=== PATIENT | male | born 1960 | race Caucasian/White ===

== ENCOUNTER 2016-06-26 19:35 | Outpatient (CLI) | payer OTHER | END 2016-06-26 19:36 | disposition home or self-care (01) | DX: G47.33 Obstructive sleep apnea (adult) (pediatric) (principal); G47.61 Periodic limb movement disorder ==

== ENCOUNTER 2016-07-07 07:30 | Outpatient (CLI) | payer OTHER | END 2016-07-07 07:31 | disposition home or self-care (01) | DX: E11.9 Type 2 diabetes mellitus without complications (principal); I10 Essential (primary) hypertension ==

== ENCOUNTER 2016-07-25 14:59 | Outpatient (CLI) | payer OTHER | END 2016-07-25 15:00 | disposition home or self-care (01) | DX: G47.33 Obstructive sleep apnea (adult) (pediatric) (principal) ==

== ENCOUNTER 2016-08-07 19:36 | Outpatient (CLI) | payer OTHER | END 2016-08-07 19:37 | disposition home or self-care (01) | DX: G47.33 Obstructive sleep apnea (adult) (pediatric) (principal) ==

== ENCOUNTER 2016-08-22 15:22 | Outpatient (CLI) | payer OTHER | END 2016-08-22 15:23 | disposition home or self-care (01) | DX: G47.33 Obstructive sleep apnea (adult) (pediatric) (principal) ==

== ENCOUNTER 2016-10-17 15:53 | Outpatient (CLI) | payer OTHER | END 2016-10-17 15:54 | disposition home or self-care (01) | DX: G47.33 Obstructive sleep apnea (adult) (pediatric) (principal) ==

== ENCOUNTER 2016-11-15 07:39 | Outpatient (CLI) | payer OTHER ==
[2016-11-15 12:45] LABS: MEAN PLATELET VOLUME 9.1 fL (7.4-11.4); NEUTROPHILS # (AUTO) 2.4 10^3/uL (1.5-6.6); UNCORRECTED WHITE BLOOD COUNT 5.1 x10^3/uL; WHITE BLOOD COUNT 5.1 x10^3/uL (4.8-10.8)
[2016-11-15 12:48] LABS: BASOPHILS # (AUTO) 0.1 10^3/uL (0.0-0.1); BASOPHILS % (AUTO) 1.2 %; EOSINOPHILS # (AUTO) 0.1 10^3/uL (0.0-0.7); EOSINOPHILS % (AUTO) 2.6 %; HCT - HEMATOCRIT 41.7 % (42.0-52.0); HGB - HEMOGLOBIN 14.2 g/dL (14.0-18.0); LYMPHOCYTES % (AUTO) 39.5 %; MEAN CORPUSCULAR HEMOGLOBIN 30.8 pg (27.0-31.0); MEAN CORPUSCULAR HGB CONC 34.2 g/dL (32.0-36.0); MEAN CORPUSCULAR VOLUME 90.1 fL (80.0-94.0); MONOCYTES # (AUTO) 0.5 10^3/uL (0.0-1.0); MONOCYTES % (AUTO) 9.1 %; NEUTROPHILS % (AUTO) 47.6 %; NUCLEATED RED BLOOD CELLS AUTO 0.1 /100WBC; RED BLOOD COUNT 4.63 10^6/uL (4.70-6.10); RED CELL DISTRIBUTION WIDTH 13.3 % (12.0-15.0)
[2016-11-15 13:08] LABS: HEMOGLOBIN A1C 0.69 g/dL
[2016-11-15 13:28] LABS: ALBUMIN/GLOBULIN RATIO 1.4 (1.0-2.2); BUN - BLOOD UREA NITROGEN 18 mg/dL (6-20); CALCIUM 9.1 mg/dL (8.5-10.3); CARBON DIOXIDE - CO2 29 mmol/L (21-32); CHLORIDE 101 mmol/L (101-111); CHOL/HDL RATIO 3.8 (<5.0); CHOLESTEROL 182 mg/dL; CREATININE 0.8 mg/dL (0.6-1.2); GFR - MDRD 101 (>89); GLUCOSE 119 mg/dL (70-100); HDL CHOLESTEROL 48 mg/dL; LDL/HDL RATIO 2.5 (<3.6); POTASSIUM 3.8 mmol/L (3.5-5.0); SODIUM 136 mmol/L (135-145); TOTAL PROTEIN 7.1 g/dL (6.7-8.2); TRIGLYCERIDES 74 mg/dL; VLDL CHOLESTEROL 15 mg/dL
== END 2016-11-15 07:40 | disposition home or self-care (01) ==
LOC: LAB.WCP 07:39
PROVIDERS: ATTEND Family Medicine
DX: I10 Essential (primary) hypertension (principal); E11.9 Type 2 diabetes mellitus without complications; E78.5 Hyperlipidemia, unspecified
CPT/HCPCS: 36415; 80053; 80061; 83036; 85025

== ENCOUNTER 2016-11-21 13:34 | Outpatient (CLI) | payer OTHER | END 2016-11-21 13:35 | disposition home or self-care (01) | LOC: SC 13:34 | PROVIDERS: ATTEND Nurse Practitioner Family | DX: G47.33 Obstructive sleep apnea (adult) (pediatric) (principal) | CPT/HCPCS: 99212; 99214 ==

== ENCOUNTER 2017-08-28 15:45 | Outpatient (CLI) | payer BC | END 2017-08-28 15:46 | disposition home or self-care (01) | LOC: SC 15:45 | PROVIDERS: ATTEND Nurse Practitioner Family | DX: G47.33 Obstructive sleep apnea (adult) (pediatric) (principal) | CPT/HCPCS: 99212; 99213 ==

== ENCOUNTER 2017-11-06 08:00 | Outpatient (CLI) | payer BC ==
[2017-11-06 13:19] LABS: ALBUMIN 4.2 g/dL (3.2-5.5); ALBUMIN/GLOBULIN RATIO 1.4 (1.0-2.2); ALKALINE PHOSPHATASE 42 IU/L (42-121); ALT ALANINE AMINOTRANSFERASE 29 IU/L (10-60); AST ASPARTATE AMINOTRANSFERASE 26 IU/L (10-42); BILIRUBIN,TOTAL 0.9 mg/dL (0.2-1.0); BUN - BLOOD UREA NITROGEN 13 mg/dL (6-20); CARBON DIOXIDE - CO2 29 mmol/L (21-32); CHLORIDE 99 mmol/L (101-111); CHOL/HDL RATIO 4.4 (<5.0); CHOLESTEROL 198 mg/dL; CREATININE 0.7 mg/dL (0.6-1.2); GFR - MDRD 117 (>89); GLUCOSE 141 mg/dL (70-100); HDL CHOLESTEROL 45 mg/dL; LDL CHOLESTEROL,CALCULATED 134 mg/dL; SODIUM 135 mmol/L (135-145); TOTAL PROTEIN 7.1 g/dL (6.7-8.2); VLDL CHOLESTEROL 19 mg/dL
[2017-11-06 19:46] LABS: HB2 TOTAL 16.7 g/dL; HEMOGLOBIN A1C 0.8 g/dL; HEMOGLOBIN A1C % 6.5 % (4.6-6.2)
== END 2017-11-06 08:01 | disposition home or self-care (01) ==
LOC: LAB.WCP 08:00
PROVIDERS: ATTEND Family Medicine
DX: N52.9 Male erectile dysfunction, unspecified (principal); I10 Essential (primary) hypertension; E11.9 Type 2 diabetes mellitus without complications; Z12.5 Encounter for screening for malignant neoplasm of prostate
CPT/HCPCS: 36415; 80053; 80061; 82043; 83036; 83721; 84153

== ENCOUNTER 2018-06-26 07:05 | Outpatient (CLI) | payer BC ==
[2018-06-26 12:57] LABS: ALBUMIN 4.4 g/dL (3.2-5.5); ALBUMIN/GLOBULIN RATIO 1.5 (1.0-2.2); ALKALINE PHOSPHATASE 44 IU/L (42-121); ALT ALANINE AMINOTRANSFERASE 35 IU/L (10-60); AST ASPARTATE AMINOTRANSFERASE 30 IU/L (10-42); BUN - BLOOD UREA NITROGEN 12 mg/dL (6-20); CALCIUM 9.5 mg/dL (8.5-10.3); CARBON DIOXIDE - CO2 28 mmol/L (21-32); CHLORIDE 98 mmol/L (101-111); CHOL/HDL RATIO 2.3 (<5.0); CHOLESTEROL 124 mg/dL; CREATININE 0.7 mg/dL (0.6-1.2); GFR - MDRD 117 (>89); GLUCOSE 130 mg/dL (70-100); HDL CHOLESTEROL 54 mg/dL; LDL CHOLESTEROL,CALCULATED 60 mg/dL; LDL/HDL RATIO 1.1 (<3.6); SODIUM 133 mmol/L (135-145); TOTAL PROTEIN 7.4 g/dL (6.7-8.2); VLDL CHOLESTEROL 10 mg/dL
[2018-06-27 19:22] LABS: HB2 TOTAL 15.8 g/dL; HEMOGLOBIN A1C 0.82 g/dL; HEMOGLOBIN A1C % 6.9 % (4.6-6.2)
== END 2018-06-26 23:59 | disposition home or self-care (01) ==
LOC: LAB.WCP 07:05
PROVIDERS: ATTEND Family Medicine
DX: E11.9 Type 2 diabetes mellitus without complications (principal); E78.5 Hyperlipidemia, unspecified; I10 Essential (primary) hypertension
CPT/HCPCS: 36415; 80053; 80061; 83036; 83721

== ENCOUNTER 2018-10-21 15:17 | Outpatient (CLI) | payer BC | END 2018-10-21 15:18 | disposition home or self-care (01) | LOC: SC 15:17 | PROVIDERS: ATTEND Nurse Practitioner Family | DX: G47.33 Obstructive sleep apnea (adult) (pediatric) (principal) | CPT/HCPCS: 99212; 99214 ==

== ENCOUNTER 2019-01-22 08:00 | Outpatient (CLI) | payer BC ==
[2019-01-22 12:27] LABS: ALBUMIN 4.3 g/dL (3.2-5.5); ALBUMIN/GLOBULIN RATIO 1.5 (1.0-2.2); BILIRUBIN,TOTAL 0.7 mg/dL (0.2-1.0); CALCIUM 8.9 mg/dL (8.5-10.3); CREATININE 0.8 mg/dL (0.6-1.2); TOTAL PROTEIN 7.1 g/dL (6.7-8.2)
[2019-01-22 12:41] LABS: HB2 TOTAL 14.1 g/dL; HEMOGLOBIN A1C 0.79 g/dL; HEMOGLOBIN A1C % 7.3 % (4.6-6.2)
== END 2019-01-22 23:59 | disposition home or self-care (01) ==
LOC: LAB.WCP 08:00
PROVIDERS: ATTEND Family Medicine
DX: I10 Essential (primary) hypertension (principal); E11.9 Type 2 diabetes mellitus without complications; E78.5 Hyperlipidemia, unspecified; N52.9 Male erectile dysfunction, unspecified
CPT/HCPCS: 36415; 80053; 83036

== ENCOUNTER 2019-03-19 17:27 | Outpatient (CLI) | payer BC ==
--- NOTE | 2019-03-20 10:36 | XRAY Report ---
Reason: KNEE PAIN, RIGHT Procedure Date: 03/19/2019 Accession Number: [id number] / [id number] Procedure: XR - Knee 3 View RT CPT Code: FULL RESULT: EXAM: RIGHT KNEE RADIOGRAPHY EXAM DATE: 03/19/2019 05:44 PM. CLINICAL HISTORY: Knee pain, right. COMPARISON: None. TECHNIQUE: 3 views. FINDINGS: Bones: Normal. No fractures or bone lesions. Joints: Joint space narrowing is most pronounced in the medial weightbearing compartment. There is tricompartmental marginal osteophyte formation. No subluxation. No significant joint effusion. Soft Tissues: Normal. No soft tissue swelling. IMPRESSION: Tricompartmental osteoarthrosis. RADIA
== END 2019-03-19 17:28 | disposition home or self-care (01) ==
LOC: DI 17:27
PROVIDERS: ATTEND Nurse Practitioner Family
DX: M17.11 Unilateral primary osteoarthritis, right knee (principal)

== ENCOUNTER 2019-08-13 07:14 | Outpatient (CLI) | payer BC, OTHER ==
[2019-08-13 12:26] LABS: ALBUMIN 4.4 g/dL (3.2-5.5); ALBUMIN/GLOBULIN RATIO 1.5 (1.0-2.2); BILIRUBIN,TOTAL 0.8 mg/dL (0.2-1.0); CALCIUM 9.2 mg/dL (8.5-10.3); CREATININE 0.6 mg/dL (0.6-1.2); TOTAL PROTEIN 7.4 g/dL (6.7-8.2)
[2019-08-13 13:26] LABS: HB2 TOTAL 13.9 g/dL; HEMOGLOBIN A1C 0.74 g/dL
== END 2019-08-13 23:59 | disposition home or self-care (01) ==
LOC: LAB.WCP 07:14
PROVIDERS: ATTEND Family Medicine
DX: M25.561 Pain in right knee (principal); I10 Essential (primary) hypertension; E11.9 Type 2 diabetes mellitus without complications
CPT/HCPCS: 36415; 80053; 83036

== ENCOUNTER 2019-08-21 10:15 | Outpatient (CLI) | payer OTHER | END 2019-08-21 23:59 | disposition home or self-care (01) | LOC: LAB.WCP 10:15 | PROVIDERS: ATTEND Family Medicine | DX: E87.1 Hypo-osmolality and hyponatremia (principal) | CPT/HCPCS: 84300 ==

== ENCOUNTER 2019-08-22 14:56 | Outpatient (CLI) | payer OTHER ==
[2019-08-22 18:59] LABS: THYROID STIMULATING HORMONE 1.27 uIU/mL (0.34-5.60)
[2019-08-22 19:03] LABS: FREE T4 (FREE THYROXINE) 0.85 ng/dL (0.58-1.64)
== END 2019-08-22 23:59 | disposition home or self-care (01) ==
LOC: LAB.WCP 14:56
PROVIDERS: ATTEND Family Medicine
DX: E87.1 Hypo-osmolality and hyponatremia (principal); R73.9 Hyperglycemia, unspecified
CPT/HCPCS: 36415; 84439; 84443

== ENCOUNTER 2019-10-13 15:44 | Outpatient (CLI) | payer OTHER ==
--- NOTE | 2019-10-13 10:48 | SLEEP CARE CONSULTATION ---
Information from patient questionnaire entered by Nilam Gomez. I have reviewed and concur with the information entered by Nilam Gomez. This document represents the service I personally performed and the decisions made by me, Frieda Hunter MD, [facility]. History of Present Illness Service Date and Time: 10/13/2019 1000 Previous diagnosis: Severe, Obstructive Sleep Apnea-Hypopnea Syndrome AHI: 30.6 Reason for follow up: annual Equipment type: CPAP Equipment obtained from: [email or web address] Type of Sleep Study: Polysomnography HPI additional information: To minimize the risk of COVID-19 exposure, the patient has requested and consented to this telephone visit. The patient also agrees to having his insurance billed. HPI: Mr. Snowden was called today to follow up on the nasal CPAP therapy. He was diagnosed to have severe obstructive sleep apnea-hypopnea syndrome. The patient wears a Respironics DreamWear nasal cushion mask. [email or web address] is his durable medical supplier. He reports using the device nightly and all through the night. The compliance report shows usage in 177 nights out of the past 180 nights, averaging 6.4 hours a night. The > 4 hour compliance rate for the past 30 days is 97%. He complained of no particular problem with the device such as soreness on the face, dry nose, epistaxis, nasal congestion or headache. He thinks that the pressure of 8 cmH2O is comfortable. On the CPAP therapy he notices improvement in his sleep quality, and that he wakes up feeling fresher in the morning and more awake/alert during the day. His notices no snore at all. The average residual AHI is 1.1; and average air leak is 8.7 L/minute. CPAP Compliance Data - Data Reviewed with Patient Average duration of nightly device use: 6H 24M Compliance rate %: 97 Current pressure setting (cmH2O): 8 Subjective Initial [place] Sleepiness Scale score: 9 Allergies and Home Medications Drug allergies reviewed: Yes Home medication list reviewed: Yes Physical Exam Height: 5 ft 6 in Impression and Plan IMPRESSION: 1. Obstructive Sleep Apnea-Hypopnea Syndrome, severe (AHI was 30.6), with the patient doing well on nasal CPAP therapy. He has excellent compliance and significant clinical improvement. The current pressure appears effective and comfortable. His mask fits well. Overall, he is very satisfied with treatment and plans to continue with it long-term. No adjustment is necessary today. PLAN: 1. Continue with autoCPAP set at 8 cmH2O. 2. Try ResMed N30i mask. 3. Return in one year for follow up or earlier if there is any problem with the treatment. Visit Type: Telehealth Phone Patient Location: Home Location of Provider: Office Patient agrees and consents to this telehealth visit type: Yes Patient agrees to have their insurance billed: Yes Time Spent with Patient (minutes): 10 Provider Statement: I spent 100% of the Telehealth Phone Call with the patient with greater than 50% spent counseling the patient and coordination of care.
== END 2019-10-13 15:45 | disposition home or self-care (01) ==
LOC: SC 15:44
PROVIDERS: ATTEND Internal Medicine Pulmonary Disease
DX: G47.33 Obstructive sleep apnea (adult) (pediatric) (principal)

== ENCOUNTER 2019-12-08 07:45 | Outpatient (CLI) | payer OTHER ==
[2019-12-08 13:11] LABS: BASOPHILS # (AUTO) 0.1 10^3/uL (0.0-0.1); EOSINOPHILS # (AUTO) 0.1 10^3/uL (0.0-0.7); EOSINOPHILS % (AUTO) 2.5 %; HGB - HEMOGLOBIN 14.5 g/dL (14.0-18.0); LYMPHOCYTES # (AUTO) 2.2 10^3/uL (1.5-3.5); LYMPHOCYTES % (AUTO) 44.2 %; MEAN CORPUSCULAR HEMOGLOBIN 31.7 pg (27.0-31.0); MEAN CORPUSCULAR HGB CONC 34.7 g/dL (32.0-36.0); MEAN CORPUSCULAR VOLUME 91.3 fL (80.0-94.0); MEAN PLATELET VOLUME 10.5 fL (7.4-11.4); MONOCYTES # (AUTO) 0.5 10^3/uL (0.0-1.0); MONOCYTES % (AUTO) 10.7 %; NEUTROPHILS % (AUTO) 41.4 %; PLT - PLATELET COUNT 266 10^3/uL (130-450); RED BLOOD COUNT 4.58 10^6/uL (4.70-6.10); RED CELL DISTRIBUTION WIDTH 12.6 % (12.0-15.0); WHITE BLOOD COUNT 4.9 x10^3/uL (4.8-10.8)
[2019-12-08 14:03] LABS: ALBUMIN 4.1 g/dL (3.2-5.5); ALBUMIN/GLOBULIN RATIO 1.7 (1.0-2.2); ALKALINE PHOSPHATASE 39 IU/L (42-121); ALT ALANINE AMINOTRANSFERASE 27 IU/L (10-60); AST ASPARTATE AMINOTRANSFERASE 25 IU/L (10-42); BUN - BLOOD UREA NITROGEN 9 mg/dL (6-20); CALCIUM 9.1 mg/dL (8.5-10.3); CARBON DIOXIDE - CO2 28 mmol/L (21-32); CHLORIDE 90 mmol/L (101-111); CHOL/HDL RATIO 2.6 (<5.0); CHOLESTEROL 121 mg/dL; CREATININE 0.7 mg/dL (0.6-1.2); GLUCOSE 111 mg/dL (70-100); HDL CHOLESTEROL 46 mg/dL; SODIUM 128 mmol/L (135-145); TOTAL PROTEIN 6.5 g/dL (6.7-8.2)
[2019-12-08 14:17] LABS: HB2 TOTAL 14.6 g/dL; HEMOGLOBIN A1C 0.74 g/dL; HEMOGLOBIN A1C % 6.8 % (4.6-6.2)
== END 2019-12-08 23:59 | disposition home or self-care (01) ==
LOC: LAB.WCP 07:45
PROVIDERS: ATTEND Family Medicine
DX: Z12.5 Encounter for screening for malignant neoplasm of prostate (principal); E78.5 Hyperlipidemia, unspecified; I10 Essential (primary) hypertension; E11.65 Type 2 diabetes mellitus with hyperglycemia
CPT/HCPCS: 36415; 80053; 80061; 83036; 83721; 84153; 84443; 85025

== ENCOUNTER 2020-03-26 07:28 | Outpatient (CLI) | payer OTHER ==
[2020-03-26 11:42] LABS: CALCIUM 9.2 mg/dL (8.5-10.3); CREATININE 0.7 mg/dL (0.6-1.2)
[2020-03-26 11:56] LABS: CREATININE,URINE 65.6 mg/dL; MICROALBUMIN,URINE 0.2 mg/dL (0-300.0)
[2020-03-26 12:10] LABS: HEMOGLOBIN A1c% 7.2 % (4.27-6.07)
== END 2020-03-26 23:59 | disposition home or self-care (01) ==
LOC: LAB.WCP 07:28
PROVIDERS: ATTEND Family Medicine
DX: E87.1 Hypo-osmolality and hyponatremia (principal)
CPT/HCPCS: 36415; 80048; 82043; 82570; 83036

== ENCOUNTER 2020-06-29 07:06 | Outpatient (CLI) | payer OTHER ==
[2020-06-29 12:24] LABS: CALCIUM 9.4 mg/dL (8.5-10.3); CREATININE 0.7 mg/dL (0.6-1.2)
[2020-06-29 12:28] LABS: CREATININE,URINE 66.7 mg/dL; MICROALBUMIN,URINE 1.6 mg/dL (0-300.0)
[2020-06-29 13:01] LABS: HEMOGLOBIN A1c% 7.4 % (4.27-6.07)
== END 2020-06-29 23:59 | disposition home or self-care (01) ==
LOC: LAB.WCP 07:06
PROVIDERS: ATTEND Family Medicine
DX: E87.1 Hypo-osmolality and hyponatremia (principal); E11.9 Type 2 diabetes mellitus without complications; I10 Essential (primary) hypertension
CPT/HCPCS: 36415; 80048; 82043; 82570; 83036

== ENCOUNTER 2020-11-12 07:18 | Outpatient (CLI) | payer OTHER ==
[2020-11-12 12:14] LABS: CALCIUM 9.4 mg/dL (8.5-10.3); CREATININE 0.9 mg/dL (0.6-1.2); POTASSIUM 4.3 mmol/L (3.5-5.0)
[2020-11-12 12:41] LABS: ESTIMATED AVERAGE GLUCOSE 148 mg/dL (70-100); HEMOGLOBIN A1c% 6.8 % (4.27-6.07)
== END 2020-11-12 23:59 | disposition home or self-care (01) ==
LOC: LAB.WCP 07:18
PROVIDERS: ATTEND Nurse Practitioner Family
DX: E11.9 Type 2 diabetes mellitus without complications (principal)
CPT/HCPCS: 36415; 80048; 83036

== ENCOUNTER 2020-11-16 13:05 | Outpatient (CLI) | payer OTHER ==
--- NOTE | 2020-11-16 13:27 | SLEEP CARE CONSULTATION ---
Information from patient questionnaire entered by Marilyn Pagan. I have reviewed and concur with the information entered by Marilyn Pagan. This document represents the service I personally performed and the decisions made by , Omayra Nguyen ARNP. History of Present Illness Service Date and Time: 11/16/2020 1305 Previous diagnosis: Severe, Obstructive Sleep Apnea-Hypopnea Syndrome AHI: 30.6 (in 2017) Reason for follow up: annual (last seen 10/2019) Equipment type: CPAP Equipment obtained from: [employer] (getting supplies as needed) Mask style: Nasal Backup mask available: No (will keep old mask when replaced) Last cushion change: 1 month Prior sleep studies: Yes Year and Where: 2017 - [facility] Type of Sleep Study: Polysomnography HPI additional information: TRACI JAMISON was diagnosed to have severe, AHI 30.6, obstructive sleep apnea-hypopnea syndrome and returned today for CPAP therapy annual follow-up. CPAP Compliance Data - Data Reviewed with Patient Average duration of nightly device use: 6 hr 19 min Compliance rate %: 98 (180 days) Current pressure setting (cmH2O): 8 Humidity settin Average residual AHI: 1.3 Central apnea: 0.1 Obstructive apnea: 1.0 Subjective Patient concerns: denies: aerophagia, mask discomfort, air blowing in eyes, mask leak noise, condensation in mask/hose, nasal congestion, dry mouth, nose, throat, epistaxis, other Observed to snore while using device: No Current pressure setting perceived as: comfortable On therapy, patient: reports: sleeping better, awakening more refreshed, being more awake and alert during the day, more rested overall. denies: drowsiness while driving Initial [place] Sleepiness Scale score: 9 (in 2016) Current [place] Sleepiness Scale score: 5 Allergies and Home Medications Home medication list reviewed: Yes (no changes) Review of Systems Review of systems same as previous: Yes (no changes) Physical Exam Heart Rate: 66 O2 Saturation: 99 Height: 5 ft 6 in Weight: 215 lb Body Mass Index: 34.7 BMI Classification: Obese Nasal exam: positive: blood tinged nasal secretions Impression and Plan 1. Obstructive Sleep Apnea-Hypopnea Syndrome, severe, with excellent treatment compliance and good apnea control. On CPAP therapy, the patient has better sleep quality and is more rested overall. Patient is satisfied with current CPAP thera py. He states he is working on his weight and trying to keep his blood sugars down. He is pre-diabetic at this time and is monitoring his blood sugars. I advised him to concentrate on eating foods that are more nutritionally advantageous and focus less on calorie counting. Patient voiced understanding and agreement with this plan of care. Patient's apnea severity and rationale for treatment to reduce apnea, improve sleep quality and reduce cardiovascular and cerebrovascular events was reviewed. * Continue auto CPAP pressure at 8 cmH2O * Notify me if snoring with mask or feeling that the pressure is too much or too little * Attempt to lose weight * Call this office if any problems using CPAP * Return for follow up in 1 year, or sooner if concerns arise Counseling Topics: Spare mask, Weight loss health impact Visit Type: In Office Time Spent with Patient (minutes): 11 Provider Statement: I spent 100% of the Face to Face Visit with the patient with greater than 50% spent counseling the patient and coordination of care.
== END 2020-11-16 13:06 | disposition home or self-care (01) ==
LOC: SC 13:05
PROVIDERS: ATTEND Nurse Practitioner Family
DX: G47.33 Obstructive sleep apnea (adult) (pediatric) (principal); E66.9 Obesity, unspecified; Z68.34 Body mass index [BMI] 34.0-34.9, adult
CPT/HCPCS: 99212

== ENCOUNTER 2021-02-23 17:00 | Outpatient (CLI) | payer OTHER ==
--- NOTE | 2021-02-23 18:32 | Ultrasound Report ---
PROCEDURE: Duplex Ext Veins Left INDICATIONS: EDEMA OF LOWER EXTREMITY TECHNIQUE: Real-time imaging, as well as color and pulse Doppler interrogation, were performed of the lower extr emity deep veins from the inguinal ligament to the popliteal fossa. COMPARISON: None. FINDINGS: The deep veins are normally compressible, and free of intraluminal thrombus. Color and pu lse Doppler demonstrate normal phasic intraluminal flow. There is normal augmentation response to di stal compression maneuver. Multiple fluid collections are seen at the posterior medial aspect of the knee, some of which have in ternal echoes. Findings may represent a lobulated medial popliteal Melo's cyst and/or superimposed s oft tissue hematoma if there has been recent trauma. Nonspecific soft tissue edema is seen in the mirtha f. IMPRESSION: 1. No sonographic evidence of deep venous thrombosis in the left lower extremity. 2. Nonspecific fluid collections of the posterior medial aspect of the leg near the knee, possibly r epresenting a lobular medial popliteal Melo's cyst with and without addition complex collections suc h as hematomas if there has been recent trauma or muscle strain. Findings could be further evaluated with MRI if indicated clinically. Reviewed by: John Rob MD on 02/23/2021 6:31 PM PDT Approved by: John Rob MD on 02/23/2021 6:31 PM PDT Station ID: [id number]
== END 2021-02-23 17:01 | disposition home or self-care (01) ==
LOC: DI 17:00
PROVIDERS: ATTEND Nurse Practitioner
DX: R60.0 Localized edema (principal)

== ENCOUNTER 2021-03-03 10:12 | Outpatient (CLI) | payer OTHER ==
--- NOTE | 2021-03-03 13:21 | XRAY Report ---
PROCEDURE: Knee 4 View LT INDICATIONS: LLE EDEMA TECHNIQUE: 4 views of the left knee(s) were acquired. COMPARISON: X-ray knee 03/19/2019 FINDINGS: Bones: No fractures or dislocations. No suspicious bony lesions. There is moderate to severe right and moderate left medial compartment narrowing. Periarticular osteophytes are present most notable o n the right. Mild to moderate lateral compartment narrowing is present bilaterally. Mild to moderate patellofemoral left compartment narrowing is present. No erosions. Soft tissues: Mild joint effusion. No suspicious soft tissue calcifications. IMPRESSION: 1. Tricompartmental changes most severe in the right medial compartment suggestive of arthritis. Over all appearance is minimally to mildly progressive compared to 2019. Reviewed by: Dana Peña MD on 03/03/2021 1:19 PM PDT Approved by: Dana Peña MD on 03/03/2021 1:19 PM PDT Station ID: [id number]
== END 2021-03-03 10:13 | disposition home or self-care (01) ==
LOC: DI.N 10:12
PROVIDERS: ATTEND Orthopaedic Surgery
DX: M71.22 Synovial cyst of popliteal space [Baker], left knee (principal); R60.0 Localized edema; M17.12 Unilateral primary osteoarthritis, left knee

== ENCOUNTER 2021-04-20 07:21 | Outpatient (CLI) | payer OTHER ==
[2021-04-20] MEDS ORDERED: GADOBUTROL 10 MMOL/10 ML VIAL ONE (07:47)
[2021-04-20 08:23] LABS: CREATININE 0.7 mg/dL (0.6-1.2)
[2021-04-20] MEDS ORDERED: GADOBUTROL 10 MMOL/10 ML VIAL IVP ONE (09:45)
--- NOTE | 2021-04-20 11:29 | MRI Report ---
PROCEDURE: Knee LT W/WO INDICATIONS: EDEMA OF LOWER EXTREMITY CONTRAST: IV CONTRAST: Gadavist ml: 9.5 TECHNIQUE: Noncontrast sagittal PD fast spin echo and T2 fast spin echo with fat saturation, sagittal 3-D spoile d GE with fat saturation; coronal T1 spin echo and PD fast spin echo with fat saturation, and axial T 1 spin echo and PD fast spin echo with fat saturation through the knee. Post-contrast axial, coronal , and sagittal T1 spin echo with fat saturation through the knee. COMPARISON: None. FINDINGS: Menisci: Medial meniscus: Ill-defined medial meniscal signal changes involving the posterior horn and body wit h slight partial extrusion. There is marked truncation of the free margin the body and the potential radial component seen at the junction of the posterior horn and body. Lateral meniscus: Intact. Cruciate ligaments: Anterior cruciate ligament: Intact. Posterior cruciate ligament: Thickening and intrasubstance signal changes of the PCL suggestive of pa rtial rupture versus mucoid degeneration. Medial structures: Medial collateral ligament: The medial collateral ligament demonstrates medial bowing, mild thickenin g and adjacent edema which could be reactive to medial meniscal pathology, versus low grade sprain. Semimembranosus tendon: Intact. Pes anserinus tendons: Intact. Bursal fluid: No bursal fluid. Lateral structures: Lateral collateral ligament appears grossly intact. Biceps femoris tendon appears intact. Iliotibial band within normal limits. Popliteus tendon within normal limits. Anterior structures: Mild patellar tendinopathy, with prepatellar and superficial infrapatellar edema. The quadriceps tendon appears intact. Medial and lateral patellofemoral ligaments appear grossly intact. Patellar alignment is normal. Hoffa's fat pad unremarkable. Bones and cartilage: Bones: No bone marrow contusions or fractures. Medial compartment: Near full-thickness loss of the femoral and tibial articular cartilage. There is prominent subchondral marrow edema in the femoral condyle. Lateral compartment: No focal cartilage defect. Patellofemoral compartment: No focal cartilage defect. Joint space: Large joint effusion. Melo's cyst which measures approximately 7 cm in the cephalocaudad dimension. There is partial ruptu re and adjacent infiltrative free fluid. No specific evidence of loose body identified. IMPRESSION: Medial meniscal tear involving the posterior horn and body with slight partial extrusion. Adjacent MC L changes as above Partial rupture versus mucoid degeneration involving posterior cruciate ligament. Please correlate to exam findings. Degenerative joint disease most pronounced the medial compartment Large joint effusion Partially ruptured large Melo's cyst. Reviewed by: Vasile Fishman MD on 04/20/2021 11:28 AM PST Approved by: Vasile Fishman MD on 04/20/2021 11:28 AM PST Station ID: [id number]
== END 2021-04-20 07:22 | disposition home or self-care (01) ==
LOC: LAB 07:21 → DI 07:22
PROVIDERS: ATTEND Family Medicine
DX: S83.242A Other tear of medial meniscus, current injury, left knee, initial encounter (principal); M17.12 Unilateral primary osteoarthritis, left knee; M25.462 Effusion, left knee; M66.0 Rupture of popliteal cyst; M23.92 Unspecified internal derangement of left knee
CPT/HCPCS: 36415; 73723; 82565; A9585

== ENCOUNTER 2021-10-05 08:45 | Outpatient (CLI) | payer OTHER ==
--- NOTE | 2021-10-05 16:59 | Ultrasound Report ---
PROCEDURE: Abdomen Limited INDICATIONS: UMBILICAL HERNIA TECHNIQUE: Real-time focused scanning was performed of the abdomen, with image documentation. COMPARISON: None FINDINGS: Fat-containing periumbilical hernia is noted. The periumbilical hernias only partially reducible. Her kristian neck measures 9 mm. IMPRESSION: Fat-containing, partially reducible paraumbilical hernia. Reviewed by: Alexa Warren MD, PhD on 10/05/2021 4:58 PM PDT Approved by: Alexa Warren MD, PhD on 10/05/2021 4:58 PM PDT Station ID: [id number]
== END 2021-10-05 08:46 | disposition home or self-care (01) ==
LOC: DI 08:45
PROVIDERS: ATTEND Nurse Practitioner
DX: K42.9 Umbilical hernia without obstruction or gangrene (principal)

== ENCOUNTER 2021-12-15 11:18 | Day surgery (SDC) | payer OTHER ==
[~2021-12-15 11:18] MED LIST: CEFAZOLIN SODIUM IN 0.9 % NACL 2 GM/50 ML BAG IV ONE; DEXAMETHASONE 4 MG/ML VIAL ONE; LIDOCAINE-MPF 2% 5 ML VIAL ONE; MIDAZOLAM 2 MG/2 ML VIAL ONE; ONDANSETRON 4 MG/2 ML VIAL ONE; PROPOFOL 200 MG/20 ML VIAL IVP ONE; ROCURONIUM 50 MG/5 ML VIAL ONE; fentaNYL 100 MCG/2 ML VIAL ONE
[2021-12-15] MEDS ORDERED: LACTATED RINGERS 1,000 ML IV ONE ×2 (11:37→13:33)
--- NOTE | 2021-12-15 11:45 | ANESTHESIA ---
Pre-Anesthesia VS, & Labs Height: 5 ft 6 in Weight (kg): 99 kg Body Mass Index: 35.2 BMI Classification: Obese - NPO >8 hours - Lab Results Lab results reviewed: Yes <Navneet Tucker - Last Filed: 12/15/21 12:02> - Diagnosis umbilical hernia (Navneet Tucker) - Procedure umbilical hernia, open repair with mesh (Navneet Tucker) Vital Signs: Temp Pulse Resp BP Pulse Ox 36.1 C L 83 24 139/73 H 98 12/15/21 11:33 12/15/21 11:33 12/15/21 11:33 12/15/21 11:33 12/15/21 11:33 - Lab Results Current Lab Results: Laboratory Tests 12/15/21 11:36: POC Whole Bld Glucose 147 H Home Medications and Allergies <Laquita Medellin - Last Filed: 12/15/21 11:50> <Navneet Tucker - Last Filed: 12/15/21 12:02> Home Medications: Ambulatory Orders Atorvastatin [Lipitor] 10 mg PO QPM 12/06/21 Furosemide [Lasix] 20 mg PO DAILY 12/06/21 amLODIPine [Norvasc] 5 mg PO DAILY 12/06/21 metFORMIN [Glucophage] 500 mg PO BIDWM 12/06/21 Lisinopril 20 mg PO DAILY 09/08/13 Atorvastatin [Lipitor] 10 mg PO QPM 12/06/21 Furosemide [Lasix] 20 mg PO DAILY 12/06/21 amLODIPine [Norvasc] 5 mg PO DAILY 12/06/21 metFORMIN [Glucophage] 500 mg PO BIDWM 12/06/21 Allergies/Adverse Reactions: Allergies Allergy/AdvReac Type Severity Reaction Status Date / Time No Known Drug Allergies Allergy Verified 09/08/13 14:30 Anes History & Medical History - Medical History Pulmonary: reports: None, Sleep apnea, CPAP use Blood Disorders: reports: None Smoking Status: Never smoker Psychosocial: reports: Alcohol History of Cancer?: No <Laquita Medellin - Last Filed: 12/15/21 11:50> - Anesthetic History Anesthesia Complications: reports: No previous complications Family history of Anesthesia Complications: Denies Family history of Malignant Hyperthermia: Denies - Medical History Cardiovascular: reports: Hypertension Pulmonary: reports: None Gastrointestinal: reports: None Urinary: reports: None Musculoskeletal: reports: None Endocrine/Autoimmune: reports: None Skin: reports: None - Surgical History General: reports: Colonoscopy <Navneet Tucker - Last Filed: 12/15/21 12:02> Exam Dental: WNL Mouth Openin Fingerbreadth Neck Mobility: Normal Mallampati classification: II Thyromental Distance: 4-6 cm Respiratory: Lungs clear Cardiovascular: Regular rate, Normal S1, Normal S2, No murmurs Mental/Cognitive Status: Alert/Oriented X3, Normal for patient Cognitive Status: Within normal limits <Laquita Medellin - Last Filed: 12/15/21 11:50> General: Alert, Oriented x3, Cooperative <Navneet Tucker - Last Filed: 12/15/21 12:02> Plan Anesthesia Type: General Consent for Procedure(s) Verified and Reviewed: Yes Code Status: Attempt Resuscitation ASA classification: 2-Mild systemic disease Is this case an emergency?: No <Navneet Tucker - Last Filed: 12/15/21 12:02>
[2021-12-15] MEDS ORDERED: MORPHINE 2 MG/ML CARPUJECT IVP PRN (11:55)
[2021-12-15] MEDS ORDERED: METOCLOPRAMIDE 10 MG/2 ML VIAL IVP PRN (11:55)
[2021-12-15] MEDS ORDERED: ONDANSETRON 4 MG/2 ML VIAL IVP PRN ×2 (11:55→13:33)
[2021-12-15] MEDS ORDERED: HYDROmorphone 0.5 MG/0.5 ML SYRINGE IVP PRN ×2 (11:55→13:33)
[2021-12-15] MEDS ORDERED: NALOXONE 0.4 MG/ML VIAL IVP PRN (11:55)
[2021-12-15] MEDS ORDERED: ePHEDrine 50 MG/ML VIAL IVP PRN (11:55)
[2021-12-15] MEDS ORDERED: ATROPINE ABBOJECT 1 MG/10 ML SYRINGE IVP PRN (11:55)
[2021-12-15] MEDS ORDERED: fentaNYL 100 MCG/2 ML VIAL IVP PRN (11:55)
[2021-12-15] MEDS ORDERED: LACTATED RINGERS 1,000 ML IV SCH (12:00)
--- NOTE | 2021-12-15 12:04 | HISTORY & PHYSICAL EXAMINATION ---
Chief Complaint - Chief Complaint Chief Complaint: painful umbilical hernia History of Present Illness - History Obtained From Records Reviewed: yes History obtained from: pt Exam Limitations: none - History of Present Illness HPI Comment/Other: umbilical hernia. getting bigger and more painful. History - Past Medical History Cardiovascular: reports: Hypertension Respiratory: reports: None Endocrine/Autoimmune: reports: None GI: reports: None : reports: None HEENT: reports: Chronic vision loss Psych: reports: None Musculoskeletal: reports: None Derm: reports: None MRSA Hx?: No - Past Surgical History General: reports: Colonoscopy Meds/Allgy - Home Medications Home Medications: Ambulatory Orders Medication Instructions Recorded Confirmed Lisinopril 20 mg PO DAILY 09/08/13 12/15/21 Atorvastatin [Lipitor] 10 mg PO QPM 12/06/21 12/15/21 Furosemide [Lasix] 20 mg PO DAILY 12/06/21 12/15/21 amLODIPine [Norvasc] 5 mg PO DAILY 12/06/21 12/15/21 metFORMIN [Glucophage] 500 mg PO BIDWM 12/06/21 12/15/21 - Allergies Allergies/Adverse Reactions: Allergies Allergy/AdvReac Type Severity Reaction Status Date / Time No Known Drug Allergies Allergy Verified 09/08/13 14:30 Review of Systems - Other Findings Other Findings: 10 pt ros as above otherwise unremarkable Exam - Vital Signs Reviewed Vital Signs: Yes Vital Signs: Vital Signs x48h Temp Pulse Resp BP Pulse Ox 12/15/21 11:33 36.1 C L 83 24 139/73 H 98 - Physical Exam General Appearance: positive: No acute distress, Alert Eyes Bilateral: positive: PERRL, EOMI, No scleral icterus ENT: positive: No signs of dehydration Neck: positive: No JVD, Trachea midline Respiratory: positive: No respiratory distress, Breath sounds nml Cardiovascular: positive: Regular rate & rhythm Abdomen: positive: Non-tender, No distention, Other (3 cm umbilical hernia and large diastasis) Neurologic/Psychiatric: positive: Oriented x3 Conclusion/Plan - Problem List (1) Umbilical hernia Conclusion/Plan: plan open repair with mesh. parq held and consent obtained - Lab Results Lab results reviewed: Yes
[2021-12-15] MEDS ORDERED: BUPIVACAINE 0.25% PF 10 ML VIAL ONE (12:06)
[2021-12-15] MEDS ORDERED: ACETAMINOPHEN 1,000 MG/100 ML 1,000 MG/100 ML BAG IV ONE (12:19)
[2021-12-15] MEDS ORDERED: BUPIVACAINE 0.25% PF 30 ML VIAL SUBQ ONE (12:39)
[2021-12-15] MEDS ORDERED: ePHEDrine 50 MG/ML VIAL IVP ONE (12:54)
[2021-12-15] MEDS ORDERED: GLYCOPYRROLATE 1 MG/5 ML VIAL ONE (13:04)
[2021-12-15] MEDS ORDERED: NEOSTIGMINE 1 MG/1 ML 10 ML MDV ONE (13:04)
[2021-12-15] MEDS ORDERED: HYDROcod/ACETAM 5/325 MG TABLET PO PRN (13:33)
--- NOTE | 2021-12-15 13:55 | OPERATIVE REPORT ---
Operative Report - General Procedure Date: 12/15/21 Planned Procedure: open umbilical hernia repair with mesh Pre-Op Diagnosis: umbilical hernia Procedure Performed: open umbilical hernia repair with mesh Post Op Diagnosis: same - Procedure Note Primary Surgeon: judith ricardo Anesthesia Technique: General ET tube, Local Pathology: none Estimated Blood Loss (mL): 0 Drain/Tube Type: Other (none) Indications: painful hernia Findings: 3 cm hernia and large diastasis Complications: none - Other Other Information/Narrative: The patient was properly identified brought to the operating room and placed in supine position. Sequential compression devices were placed. General anesthesia was induced. The patient was prepped and draped in a sterile fashion and given preoperative antibiotics. Local anesthetic was given throughout the procedure. An infraumbilical incision was made. Dissection proceeded sharply. Subcutaneous tissue was mobilized away from the fascial defect by 2 to 3 cm in all directions. Umbilical skin was sharply excised away from the hernia sac or peritoneum. The peritoneum was then carefully released from the fascial defect edge with cutting current cautery. A preperitoneal space was developed for mesh placement. Polypropylene mesh was cut to size approximately 2 x 3 inches and placed preperitoneal. The mesh was secured with 9 interrupted 0 Ethibond sutures. The mesh lay in good position without tension. Subcutaneous tissue was reapproximated with interrupted 2-0 Vicryl suture. Umbilical skin was tacked back down to fascia with interrupted 2-0 Vicryl suture. Buried interrupted subdermal 3-0 Vicryl sutures were then placed. Skin was closed with a running 4-0 Monocryl subcuticular suture. Dressing was applied. Patient tolerated the procedure the procedure well was awakened and brought to recovery in good condition.
--- NOTE | 2021-12-15 14:02 | ANESTHESIA POST OP EVALUATION ---
Anesthesia Post Eval - Post Anesthesia Eval Vitals: Last Vital Signs Temp 36.4 C L 12/15/21 13:58 Pulse 74 12/15/21 13:58 Resp 16 12/15/21 13:58 BP 135/73 H 12/15/21 13:58 Pulse Ox 96 12/15/21 13:58 CV Function Including HR & BP: Stable Pain Control: Satisfactory Nausea & Vomiting: Negative Mental Status: Baseline Respiratory Status: Airway Patent Hydration Status: Satisfactory Anesthesia Complications: None
[2021-12-15 14:49] VITALS: BP 126/86
== END 2021-12-15 11:19 | disposition home or self-care (01) ==
LOC: SDS 11:18
PROVIDERS: ATTEND Surgery
DX: K42.9 Umbilical hernia without obstruction or gangrene (principal); I10 Essential (primary) hypertension; E66.9 Obesity, unspecified; Z68.35 Body mass index [BMI] 35.0-35.9, adult; Z79.84 Long term (current) use of oral hypoglycemic drugs; Z79.899 Other long term (current) drug therapy
CPT/HCPCS: 49585; A9270; C1781; J0131; J0690; J7120

== ENCOUNTER 2021-12-22 10:08 | Outpatient (CLI) | payer OTHER ==
[2021-12-22 10:44] VITALS: BP 123/72
--- NOTE | 2021-12-22 10:44 | SLEEP CARE CONSULTATION ---
Information from patient questionnaire entered by Buster Molina MA. I have reviewed and concur with the information entered by Buster Molina MA. This document represents the service I personally performed and the decisions made by , Omayra Nguyen ARNP. History of Present Illness Service Date and Time: 12/22/2021 1008 Previous diagnosis: Severe, Obstructive Sleep Apnea-Hypopnea Syndrome AHI: 30.6 (in 2017) Reason for follow up: annual (LAST SEEN 11/2020, RESMED, DORSEY 08/31/2016, NEW RX?) Equipment type: CPAP Equipment obtained from: [employer] (getting supplies as needed) Mask style: Nasal Mask brand: Resmed Backup mask available: Yes (old mask) Last cushion change: 1-2 months Prior sleep studies: Yes Year and Where: 2016 - [facility] Type of Sleep Study: Polysomnography HPI additional information: TRACI JAMIOSN was diagnosed to have severe, AHI 30.6, obstructive sleep apnea-hypopnea syndrome and returned today for CPAP therapy annual follow-up. Sleep Study - Results Type of Sleep Study: Polysomnography [facility] Yes [facility] Compliance Data - Data Reviewed with Patient Average duration of nightly device use: 6 HOURS 4 MINUTES Compliance rate %: 98 (03/24/21-09/09/2021; 179/180 days used) Current pressure setting (cmH2O): 8 Average residual AHI: 1.3 Central apnea: .1 Obstructive apnea: 1.0 Hypopnea: .1 Average large leak: 1.2 Subjective Missed days of use due to: reports: illness (hernia surgery) Patient concerns: reports: condensation in mask/hose (once in a while). denies: aerophagia, mask discomfort, air blowing in eyes, mask leak noise, nasal congestion, dry mouth, nose, throat, epistaxis, other Observed to snore while using device: No Current pressure setting perceived as: comfortable On therapy, patient: reports: sleeping better, awakening more refreshed, being more awake and alert during the day, more rested overall. denies: drowsiness while driving Initial [place] Sleepiness Scale score: 9 (in 2015) Current [place] Sleepiness Scale score: 3 (12/22/2021) Allergies and Home Medications Known drug allergies: No Drug allergies reviewed: Yes Home medication list reviewed: Yes (no changes) Allergy and home medication list: Allergies No Known Drug Allergies Allergy (Verified 09/08/13 14:30) Review of Systems Review of systems same as previous: Yes (HERNIA SURG, 12/15/2021) Physical Exam Vital signs obtained and entered by: LIDA ALMANZA Blood Pressure: 123/72 (RSP 18, PULSE 60, RIGHT) Heart Rate: 62 O2 Saturation: 98 (PAPER MASK) Height: 5 ft 6 in Weight: 218 lb (CLOTHES) Weight change since last visit: LOSE - EXCER. BIKE, Body Mass Index: 35.2 BMI Classification: Obese Impression and Plan 1. Obstructive Sleep Apnea-Hypopnea Syndrome, severe, with good treatment compliance and good apnea control. On CPAP therapy, the patient has better sleep quality and is more rested overall. His machine was last updated 2016. The patients CPAP is over 5 years old and of reasonable use. Thus, the CPAP will be updated. A DWO prescription will be made. Compliance guidelines for new device and follow up discussed. Patient's apnea severity and rationale for treatment to reduce apnea, improve sleep quality and reduce cardiovascular and cerebrovascular events was reviewed. I also reviewed the benefit of consistent device use of CPAP for pre-diabetes. 2. Obesity, unspecified. Currently patients BMI is 35.2. Obesity increases the risk of apnea, CPAP pressure requirements and overall health risks especially cardiovascular and diabetes. Thus patient is advised to continue to try to lose weight. Weight loss can be done with reducing portion size, reducing refined foods and balancing content with vegetables, fruit and whole grain foods. In addition, patient encouraged to get regular exercise. * Continue CPAP pressure at 8 cmH2O * Update machine * Update supplies * Notify me if snoring with mask or feeling that the pressure is too much or too little * Attempt to lose weight * Call this office if any problems using CPAP * Return for follow up one month after obtaining new device or sooner if concerns arise Counseling Topics: Spare mask, Weight loss health impact Visit Type: In Office Time Spent with Patient (minutes): 22 Provider Statement: I spent 100% of the Face to Face Visit with the patient with greater than 50% spent counseling the patient and coordination of care.
== END 2021-12-22 10:09 | disposition home or self-care (01) ==
LOC: SC 10:08
PROVIDERS: ATTEND Nurse Practitioner Family
DX: G47.33 Obstructive sleep apnea (adult) (pediatric) (principal); E66.9 Obesity, unspecified; Z68.35 Body mass index [BMI] 35.0-35.9, adult
CPT/HCPCS: 99212; 99213

== ENCOUNTER 2023-01-16 07:35 | Outpatient (CLI) | payer OTHER ==
[2023-01-16 12:21] LABS: BASOPHILS # (AUTO) 0.1 10^3/uL (0.0-0.1); BASOPHILS % (AUTO) 1.1 %; EOSINOPHILS # (AUTO) 0.2 10^3/uL (0.0-0.7); EOSINOPHILS % (AUTO) 2.7 %; HCT - HEMATOCRIT 42.3 % (42.0-52.0); HGB - HEMOGLOBIN 14.2 g/dL (14.0-18.0); LYMPHOCYTES # (AUTO) 2.4 10^3/uL (1.5-3.5); LYMPHOCYTES % (AUTO) 38.4 %; MEAN CORPUSCULAR HEMOGLOBIN 30.7 pg (27.0-31.0); MEAN CORPUSCULAR HGB CONC 33.6 g/dL (32.0-36.0); MEAN CORPUSCULAR VOLUME 91.6 fL (80.0-94.0); MEAN PLATELET VOLUME 11.2 fL (7.4-11.4); MONOCYTES # (AUTO) 0.5 10^3/uL (0.0-1.0); MONOCYTES % (AUTO) 8.5 %; NEUTROPHILS # (AUTO) 3.1 10^3/uL (1.5-6.6); NEUTROPHILS % (AUTO) 49.1 %; PLT - PLATELET COUNT 251 10^3/uL (130-450); RED BLOOD COUNT 4.62 10^6/uL (4.70-6.10); WHITE BLOOD COUNT 6.2 x10^3/uL (4.8-10.8)
[2023-01-16 12:28] LABS: ESTIMATED AVERAGE GLUCOSE 197 mg/dL (70-100); HEMOGLOBIN A1c% 8.5 % (4.27-6.07)
[2023-01-16 12:36] LABS: ALBUMIN 4.1 g/dL (3.2-5.5); ALBUMIN/GLOBULIN RATIO 1.6 (1.0-2.2); ALKALINE PHOSPHATASE 49 IU/L (42-121); ALT ALANINE AMINOTRANSFERASE 19 IU/L (10-60); AST ASPARTATE AMINOTRANSFERASE 15 IU/L (10-42); BILIRUBIN,TOTAL 0.6 mg/dL (0.2-1.0); BUN - BLOOD UREA NITROGEN 11 mg/dL (6-20); CALCIUM 9.1 mg/dL (8.5-10.3); CARBON DIOXIDE - CO2 29 mmol/L (21-32); CHLORIDE 101 mmol/L (101-111); CHOL/HDL RATIO 2.9 (<5.0); CHOLESTEROL 117 mg/dL; CREATININE 0.8 mg/dL (0.6-1.3); GFR - MDRD 99 (>89); GLUCOSE 155 mg/dL (74-104); HDL CHOLESTEROL 41 mg/dL; LDL CHOLESTEROL,CALCULATED 54 mg/dL; LDL/HDL RATIO 1.3 (<3.6); POTASSIUM 4.5 mmol/L (3.5-4.5); SODIUM 134 mmol/L (135-145); TOTAL PROTEIN 6.7 g/dL (6.4-8.9); TRIGLYCERIDES 109 mg/dL (48-352); VLDL CHOLESTEROL 22 mg/dL
[2023-01-16 12:37] LABS: CREATININE,URINE 58.8 mg/dL
[2023-01-16 12:43] LABS: MICROALBUMIN,URINE < 0.7 mg/dL
== END 2023-01-16 07:36 | disposition home or self-care (01) ==
LOC: LAB.N 07:35
PROVIDERS: ATTEND Nurse Practitioner
DX: I10 Essential (primary) hypertension (principal); E78.5 Hyperlipidemia, unspecified; E11.9 Type 2 diabetes mellitus without complications; Z12.5 Encounter for screening for malignant neoplasm of prostate
CPT/HCPCS: 36415; 80053; 80061; 82043; 82570; 83036; 83721; 84153; 85025

== ENCOUNTER 2023-04-16 06:27 | Outpatient (CLI) | payer OTHER ==
[2023-04-16 07:42] LABS: ESTIMATED AVERAGE GLUCOSE 174 mg/dL (70-100); HEMOGLOBIN A1c% 7.7 % (4.27-6.07)
== END 2023-04-16 06:28 | disposition home or self-care (01) ==
LOC: LAB 06:27
PROVIDERS: ATTEND Nurse Practitioner
DX: E11.9 Type 2 diabetes mellitus without complications (principal)
CPT/HCPCS: 36415; 83036

== ENCOUNTER 2023-08-29 07:02 | Outpatient (CLI) | payer OTHER ==
[2023-08-29 10:38] LABS: ESTIMATED AVERAGE GLUCOSE 126 mg/dL (70-100)
== END 2023-08-29 07:03 | disposition home or self-care (01) ==
LOC: LAB 07:02
PROVIDERS: ATTEND Nurse Practitioner
DX: E11.9 Type 2 diabetes mellitus without complications (principal)
CPT/HCPCS: 36415; 83036

== ENCOUNTER 2023-11-29 06:34 | Day surgery (SDC) | payer OTHER ==
[2023-11-29] MEDS: LACTATED RINGERS 1,000 ML IV ONE (06:41)
[2023-11-29 07:12] VITALS: BP 125/72; O2SAT 100
--- NOTE | 2023-11-29 07:24 | ANESTHESIA ---
Pre-Anesthesia VS, & Labs Height: 5 ft 5 in Weight (kg): 90.1 kg Body Mass Index: 33.0 BMI Classification: Obese - Diagnosis Screening (Jae Brady) - Procedure Colonoscopy (Jae Brady) Vital Signs: Temp Pulse Resp BP Pulse Ox O2 Flow Rate 36.0 C L 82 16 125/72 100 11/29/23 07:00 11/29/23 07:00 11/29/23 07:00 11/29/23 07:00 11/29/23 07:00 - Lab Results Current Lab Results: Laboratory Tests 11/29/23 07:03: POC Whole Bld Glucose 82 Home Medications and Allergies Home Medications: Ambulatory Orders Metoprolol Succinate [Toprol Xl] 25 mg PO DAILY 11/29/23 Lisinopril 20 mg PO DAILY 09/08/13 Atorvastatin [Lipitor] 10 mg PO QPM 12/06/21 Furosemide [Lasix] 20 mg PO DAILY 12/06/21 metFORMIN [Glucophage] 500 mg PO TID 12/06/21 Semaglutide [Ozempic] 1 mg SQ OAW 11/08/23 Metoprolol Succinate [Toprol Xl] 25 mg PO DAILY 11/29/23 Allergies/Adverse Reactions: Allergies Allergy/AdvReac Type Severity Reaction Status Date / Time No Known Drug Allergies Allergy Verified 09/08/13 14:30 Anes History & Medical History - Medical History Cardiovascular: reports: Hypertension Pulmonary: reports: Sleep apnea, CPAP use Gastrointestinal: reports: None Urinary: reports: None Musculoskeletal: reports: None Endocrine/Autoimmune: reports: None Blood Disorders: reports: None Skin: reports: None Smoking Status: Never smoker Exam General: Oriented x3, Cooperative Dental: WNL Mouth Opening: Greater than 4 Fingerbreadths Mallampati classification: I Thyromental Distance: greater than 6 cm Cardiovascular: Other (12 Lead EKG ordered due to irregular rhythm on 3 lead) Plan Anesthesia Type: MAC Consent for Procedure(s) Verified and Reviewed: Yes Code Status: Attempt Resuscitation ASA classification: 2-Mild systemic disease Is this case an emergency?: No Consultation Report: On admission, patient found to be in new onset afib. EKG obtained and shows afib with rate in the 70s. Patient denies any symptoms, including shortness of breath, palpitations or chest pain. Reports he rides a bike 4-5 times per week without difficult. Due to new onset afib, unable to proceed with elective colonoscopy. Referred patient to primary care for cardiac workup. Advised patient to come to ER if he develops symptoms including chest pain, shortness of breath and/or stroke/tia symptoms. (Nakita Barreto)
[2023-11-29] MEDS ORDERED: PROPOFOL 500 MG/50 ML 0 MG/0 ML VIAL ONE (07:25)
[2023-11-29] MEDS ORDERED: PROPOFOL 200 MG/20 ML VIAL IVP ONE (07:25)
[2023-11-29] MEDS ORDERED: LIDOCAINE-MPF 2% 5 ML VIAL ONE (07:25)
--- NOTE | 2023-11-29 07:35 | HISTORY & PHYSICAL EXAMINATION ---
Chief Complaint - Chief Complaint Chief Complaint: here for colonoscopy History of Present Illness - History Obtained From Records Reviewed: yes History obtained from: pt Exam Limitations: none - History of Present Illness HPI Comment/Other: colonoscopy 10 years ago; no polyps. no gi symptoms. no fhx colon ca. History - Past Medical History Cardiovascular: reports: Hypertension Respiratory: reports: Sleep apnea, CPAP use Endocrine/Autoimmune: reports: None GI: reports: None : reports: None HEENT: reports: None Psych: reports: None Musculoskeletal: reports: None Derm: reports: None Meds/Allgy - Home Medications Home Medications: Ambulatory Orders Medication Instructions Recorded Confirmed Lisinopril 20 mg PO DAILY 09/08/13 12/15/21 Atorvastatin [Lipitor] 10 mg PO QPM 12/06/21 11/29/23 Furosemide [Lasix] 20 mg PO DAILY 12/06/21 11/29/23 metFORMIN [Glucophage] 500 mg PO TID 12/06/21 12/15/21 HYDROcod/ACETAM 5/325 [[place] 5/325] 1 each PO Q6H PRN #30 tablet 12/15/21 Semaglutide [Ozempic] 1 mg SQ OAW 11/08/23 11/08/23 Metoprolol Succinate [Toprol Xl] 25 mg PO DAILY 11/29/23 11/29/23 - Allergies Allergies/Adverse Reactions: Allergies Allergy/AdvReac Type Severity Reaction Status Date / Time No Known Drug Allergies Allergy Verified 09/08/13 14:30 Review of Systems - Other Findings Other Findings: 10 pt ros as above otherwise unremarkable Exam - Vital Signs Reviewed Vital Signs: Yes Vital Signs: Vital Signs x48h Temp Pulse Resp BP Pulse Ox 11/29/23 07:00 36.0 C L 82 16 125/72 100 - Physical Exam General Appearance: positive: No acute distress, Alert Eyes Bilateral: positive: PERRL, EOMI ENT: positive: No signs of dehydration Neck: positive: No JVD, Trachea midline Respiratory: positive: No respiratory distress Cardiovascular: positive: Irregularly irregular Abdomen: positive: Non-tender Neurologic/Psychiatric: positive: Oriented x3 Conclusion/Plan - Problem List (1) Colon cancer screening Conclusion/Plan: plan colonoscopy. parq held and consent obtained. appears to have a fib. he has no symptoms and no history of a fib. procedure cancelled per anesthesia.
--- NOTE | 2023-11-29 14:21 | ANESTHESIA POST OP EVALUATION ---
Anesthesia Post Eval - Post Anesthesia Eval Vitals: Last Vital Signs Temp 36.0 C L 11/29/23 07:00 Pulse 82 11/29/23 07:00 Resp 16 11/29/23 07:00 BP 125/72 11/29/23 07:00 Pulse Ox 100 11/29/23 07:00 O2 Flow Rate CV Function Including HR & BP: Stable Pain Control: Satisfactory Nausea & Vomiting: Negative Mental Status: Baseline Respiratory Status: Airway Patent Hydration Status: Satisfactory Anesthesia Complications: None
== END 2023-11-29 06:35 | disposition home or self-care (01) ==
LOC: SDS 06:34
PROVIDERS: ATTEND Surgery
DX: Z12.11 Encounter for screening for malignant neoplasm of colon (principal); I48.91 Unspecified atrial fibrillation; Z53.09 Procedure and treatment not carried out because of other contraindication
CPT/HCPCS: 93005; J7120

== ENCOUNTER 2023-12-04 07:13 | Outpatient (CLI) | payer OTHER ==
[2023-12-04 07:51] LABS: MAGNESIUM 1.8 mg/dL (1.7-2.3)
[2023-12-04 07:56] LABS: CALCIUM 9.2 mg/dL (8.5-10.3); CREATININE 0.7 mg/dL (0.6-1.3); POTASSIUM 3.9 mmol/L (3.5-4.5)
[2023-12-04 07:57] LABS: THYROID STIMULATING HORMONE 2.04 uIU/mL (0.34-5.60)
== END 2023-12-04 07:14 | disposition home or self-care (01) ==
LOC: LAB 07:13
PROVIDERS: ATTEND Physician Assistant
DX: I48.91 Unspecified atrial fibrillation (principal)
CPT/HCPCS: 36415; 80048; 83735; 84443

== ENCOUNTER 2024-01-04 07:10 | Outpatient (CLI) | payer OTHER | END 2024-01-04 07:11 | disposition home or self-care (01) | LOC: LAB 07:10 | PROVIDERS: ATTEND Internal Medicine Cardiovascular Disease | DX: I48.19 Other persistent atrial fibrillation (principal) | CPT/HCPCS: 36415; 84443 ==

== ENCOUNTER 2024-02-27 07:02 | Outpatient (CLI) | payer OTHER ==
[2024-02-27 07:26] LABS: BASOPHILS # (AUTO) 0.1 10^3/uL (0.0-0.1); EOSINOPHILS # (AUTO) 0.1 10^3/uL (0.0-0.7); EOSINOPHILS % (AUTO) 1.8 %; HCT - HEMATOCRIT 41.4 % (42.0-52.0); HGB - HEMOGLOBIN 13.9 g/dL (14.0-18.0); LYMPHOCYTES # (AUTO) 2.3 10^3/uL (1.5-3.5); LYMPHOCYTES % (AUTO) 38.4 %; MEAN CORPUSCULAR HEMOGLOBIN 30.7 pg (27.0-31.0); MEAN CORPUSCULAR HGB CONC 33.6 g/dL (32.0-36.0); MEAN CORPUSCULAR VOLUME 91.4 fL (80.0-94.0); MEAN PLATELET VOLUME 10.2 fL (7.4-11.4); MONOCYTES # (AUTO) 0.5 10^3/uL (0.0-1.0); MONOCYTES % (AUTO) 8.3 %; NEUTROPHILS % (AUTO) 49.3 %; PLT - PLATELET COUNT 250 10^3/uL (130-450); RED BLOOD COUNT 4.53 10^6/uL (4.70-6.10); RED CELL DISTRIBUTION WIDTH 12.5 % (12.0-15.0)
[2024-02-27 07:41] LABS: ALBUMIN 4.3 g/dL (3.2-5.5); ALKALINE PHOSPHATASE 49 IU/L (42-121); ALT ALANINE AMINOTRANSFERASE 20 IU/L (10-60); AST ASPARTATE AMINOTRANSFERASE 18 IU/L (10-42); BILIRUBIN,TOTAL 0.9 mg/dL (0.2-1.0); BUN - BLOOD UREA NITROGEN 12 mg/dL (6-20); CALCIUM 9.4 mg/dL (8.5-10.3); CARBON DIOXIDE - CO2 30 mmol/L (21-32); CHLORIDE 100 mmol/L (101-111); CHOL/HDL RATIO 2.4 (<5.0); CHOLESTEROL 107 mg/dL; CREATININE 0.7 mg/dL (0.6-1.3); GFR - MDRD 115 (>89); GLUCOSE 109 mg/dL (74-104); HDL CHOLESTEROL 44 mg/dL; LDL CHOLESTEROL,CALCULATED 50 mg/dL; LDL/HDL RATIO 1.1 (<3.6); POTASSIUM 4.3 mmol/L (3.5-4.5); SODIUM 135 mmol/L (135-145); TOTAL PROTEIN 6.5 g/dL (6.4-8.9); TRIGLYCERIDES 63 mg/dL; VLDL CHOLESTEROL 13 mg/dL
== END 2024-02-27 07:03 | disposition home or self-care (01) ==
LOC: LAB 07:02
PROVIDERS: ATTEND Nurse Practitioner
DX: I10 Essential (primary) hypertension (principal); E78.5 Hyperlipidemia, unspecified
CPT/HCPCS: 36415; 80053; 80061; 83721; 85025